=== PATIENT | female | born 1965 | race Caucasian/White ===

== ENCOUNTER 2023-10-03 14:38 | Outpatient (AMB) | payer OTHER, SELFPAY ==
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
== END 2023-10-03 15:06 | disposition home or self-care (01) ==
LOC: HO.HOP 14:38
PROVIDERS: PCP Internal Medicine; Visit Provider Clinical Nurse Specialist Psychiatric/Mental Health
DX: F41.1 Generalized anxiety disorder (principal); F41.0 Panic disorder [episodic paroxysmal anxiety]
CPT/HCPCS: 99214

== ENCOUNTER → 2023-10-03 14:38 | Outpatient (BNVA) | payer OTHER, SELFPAY | PROVIDERS: PCP Internal Medicine; Visit Provider Clinical Nurse Specialist Psychiatric/Mental Health | DX: F41.1 Generalized anxiety disorder (principal); F41.0 Panic disorder [episodic paroxysmal anxiety] | CPT/HCPCS: 99212 ==

== ENCOUNTER 2024-01-02 09:25 | Outpatient (AMB) | payer OTHER, SELFPAY ==
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
== END 2024-01-02 11:04 | disposition home or self-care (01) ==
LOC: HO.HOP 09:25
PROVIDERS: PCP Internal Medicine; Visit Provider Clinical Nurse Specialist Psychiatric/Mental Health
DX: F41.0 Panic disorder [episodic paroxysmal anxiety] (principal); F43.10 Post-traumatic stress disorder, unspecified
CPT/HCPCS: 99215

== ENCOUNTER → 2024-01-02 09:25 | Outpatient (BNVA) | payer OTHER, SELFPAY | PROVIDERS: PCP Internal Medicine; Visit Provider Clinical Nurse Specialist Psychiatric/Mental Health | DX: F41.0 Panic disorder [episodic paroxysmal anxiety] (principal); F43.10 Post-traumatic stress disorder, unspecified | CPT/HCPCS: 99212 ==

== ENCOUNTER 2024-03-26 09:14 | Outpatient (AMB) | payer OTHER, SELFPAY ==
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
== END 2024-03-26 09:42 | disposition home or self-care (01) ==
LOC: HO.HOP 09:14
PROVIDERS: PCP Internal Medicine; Visit Provider Clinical Nurse Specialist Psychiatric/Mental Health
DX: F43.10 Post-traumatic stress disorder, unspecified (principal); F41.0 Panic disorder [episodic paroxysmal anxiety]
CPT/HCPCS: 99214

== ENCOUNTER → 2024-03-26 09:14 | Outpatient (BNVA) | payer OTHER, SELFPAY | PROVIDERS: PCP Internal Medicine; Visit Provider Clinical Nurse Specialist Psychiatric/Mental Health | DX: F43.10 Post-traumatic stress disorder, unspecified (principal); F41.0 Panic disorder [episodic paroxysmal anxiety] | CPT/HCPCS: 99212 ==

== ENCOUNTER 2024-06-18 09:28 | Outpatient (AMB) | payer OTHER, SELFPAY ==
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
--- OUTSIDE RECORDS SUMMARY | 2024-06-18 09:33 | XMS_ITS | Continuity of Care Document ---
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 [address], [place], [id number], . tel:[phone] Family History Family Member Type Diagnosis Age At Onset No Information Payers Payer name Insurance type Covered constitution party ID Authoriza tion(s) No Information Social History Type Description Quantity Date Captured Comments Alcohol Use Details Unknown Caffeine Use Details Unknown Tobacco Use Status No Information Smoking Status No Information Sex Female Chief Complaint And Reason For Visit No Information Reason For Referral Reason For Referral No Information History Of Present Illness Encounter Date Complaint History Of Prese nt Illness No Information Functional Status Date Functional Assessmen t No Information Instructions Date Instruction Additional Infor mation No Information Assessments Type Assessment Date No Information Patient Care Teams Name Effective Dates (start - stop) Status Members No Information
== END 2024-06-18 09:55 | disposition home or self-care (01) ==
LOC: HO.HOP 09:28
PROVIDERS: PCP Internal Medicine; Visit Provider Clinical Nurse Specialist Psychiatric/Mental Health
DX: F43.10 Post-traumatic stress disorder, unspecified (principal); F41.0 Panic disorder [episodic paroxysmal anxiety]
CPT/HCPCS: 99214

== ENCOUNTER → 2024-06-18 09:28 | Outpatient (BNVA) | payer OTHER, SELFPAY | PROVIDERS: PCP Internal Medicine; Visit Provider Clinical Nurse Specialist Psychiatric/Mental Health | DX: F43.10 Post-traumatic stress disorder, unspecified (principal); F41.0 Panic disorder [episodic paroxysmal anxiety] | CPT/HCPCS: 99212 ==

== ENCOUNTER 2024-09-17 09:16 | Outpatient (AMB) | payer OTHER, SELFPAY ==
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
--- OUTSIDE RECORDS SUMMARY | 2024-09-17 10:45 | XMS_ITS | Encounter Summary ---
Author Organization [facility] Address [address] [place] [address] Care Team Providers Care Speaking Unit Assembler Name Role Phone Kari Camacho MD Primary Care Provider [phone] Reason for Visit * Reason Onset Date Comments Med Refill 08/04/2024 Zepbound Encounter Details Date Type Department Care Team ([facility] st Contact Info) Description 08/04/2024 Telephone Bariatric Surgery - [place] [address] [phone] Kamryn Hart MD [address] [address] Med Refill (Zepbound) Social History Tobacco Use Types Packs/Day Years Used Date Smoking Tobacco: Light Smoker Smokeless Tobacco: Never Alcohol Use Standard Drinks/Week Comments Not Currently 0 (1 standard drink = 0.6 oz pur e alcohol) Comments Unknown Sex and Gender Information Value Date Recorded Sex Assigned at Female 05/18/2024 10:54 AM EST Legal Sex Female 11:37 PM EST Gender Identity Female 05/18/2024 10:54 AM EST Sexual Orientation Straight 05/18/2024 10 :54 AM EST documented as of this encounter Functional Status * Are you deaf or do you have serious difficulty hearing? Answer Date of Assessment Author No 05/18/2024 9:01 AM EST Amanda Hanna, ABBE * Are you blind or do you have serious difficulty seeing, even when wearing glasses? Answer Date of Assessment Author No 05/18/2024 9:01 AM Amanda Esqueda RN * Do you have serious difficulty walking or climbing stairs? Answer Date of Assessment Author No 05/18/2024 9:01 AM Amanda Esqueda RN * Do you have serious difficulty dressing or bathing? Answer Date of Assessment Author No 05/18/2024 9:01 AM Amanda Esqueda RN * Because of a physical, mental, or emotional condition, do you have serious difficulty doing errandsalone such as visiting the doctor? Answer Date of Assessment Author No 05/18/2024 9:01 AM Amanda Esqueda RN documented as of this encounter Mental Status * Because of a physical, mental, or emotional condition, do you have serious difficulty concentrating, remembering, or making decisions? (5 years old or older) Answer Entry Date Author No 05/18/2024 9:01 AM Amanda Esqueda RN documented in this encounter Progress Notes * Hoda Hale - 08/04/2024 10:05 AM EST Patient did well on Zepbound 2.5 mgs and would like a refill with titration. If appropriate, please send script for Zepbound 5 mgs to their pharmacy. The patient does have a follow up in 10/15/2024 documented in this encounter Plan of Treatment Upcoming Encounters Date Type Department Care Team (Late st Contact Info) Description 10/15/2024 8:15 AM EDT Office Visit Bariatric Surgery - [place] [address] [facility] [address] [place] [phone] Kamryn Hart MD [address] [facility] [address] [place] [address] documented as of this encounter Visit Diagnoses Not on filedocumented in this encounter Care Teams Speaking Unit Assembler Relationship Specialty Start Date End Date Kari Camacho MD PCP - General Internal Medicine 05/04/15 documented as of this encounter
--- OUTSIDE RECORDS SUMMARY | 2024-09-17 10:45 | XMS_ITS | Clinical Summary ---
Author Organization 175 [facility] Address 175 [place] [address] Phone Care Team Providers Care Chemical Laboratory Chief Name Role Phone Kari Camacho MD Primary Care Provider [phone] Allergies Active Allergy Reactions Criticality Noted Date Comments Codeine Hives 01/30/2017 Hydrocodone-Acetaminophen Hallucinations 2016 Medications albuterol sulfate (Proair Digihaler) 90 mcg/actuation aero powdr breath act w/sensor Inhale by mouth. Active cetirizine (ZyrTEC) 10 mg capsule Take 1 capsule (10 mg total) by mouth. Active fluticasone propionate (Flovent Diskus) 50 mcg/actuation diskus inhaler Inhale 1 puff by mouth. Active lisinopriL (PRINIVIL,ZEST RIL) 10 mg tablet Take 2 tablets (20 mg total) by mouth. Active omeprazole (PRILOSEC) 20 mg tablet,delayed release (DR/EC) Take 1 capsule by mouth 2 (two) times a day. Active sodium chloride (AYR) 0.65 % nasal drops Administer into affected nostril(s). Active nicotine (NICODERM CQ) 14 mg/[address] 1 patch on the skin 1 (one) time each day. 30 each 05/18/20 24 Active traMADoL (ULTRAM) 50 mg tablet Take 1 tablet (50 mg total) by mouth every 6 (six) hours if needed for severe pain for up to 12 doses. Max Daily Amount: 200 mg 12 tablet 05/18/20 24 Active tirzepatide, weight loss, (Zepbound) 7.5 mg/0.5 mL injection Inject 0.5 mL (7.5 mg total) under the skin every 7 (seven) days for 28 days. 2 mL 09/02/19 25 025 Active tirzepatide, weight loss, (Zepbound) 5 mg/0.5 mL injection Inject 0.5 mL (5 mg total) under the skin every 7 (seven) days for 28 days. 2 mL 08/04/19 25 025 Discontinued Active Problems Problem Noted Date Diagnosed Date Asthma 05/18/2024 HTN (hypertension) 05/18/2024 Sleep apnea 01/30/2021 Umbilical hernia without obstruction and without gangrene 01/30/2021 Encounters Date Type Department Care Team Description 09/01/2024 Telephone Bariatric Surgery [address] [phone] Kamryn Hart MD Med Refill (Zepbound) 08/04/2024 Telephone Bariatric Surgery [address] [phone] Kamryn Hart MD Med Refill (Zepbound) 07/15/2024 1:15 PM EST Office Visit Bariatric Surgery [address] [phone] Kamryn Hart MD Class 1 obesity due to excess calories with serious comorbidity and body mass index (BMI) of 33.0 to 33.9 in adult (Primary Dx) from Last 3 Months Medical History Medical History Date Comments Hypertension Hyperlipidemia Asthma Kidney stones Social History Tobacco Use Types Packs/Day Years [...] Orientation Straight 05/18/2024 10 :54 AM EST Obstetrics History Last Filed Vital Signs Vital Sign Reading Time Taken Comments Blood Pressure 133/78 07/15/2024 1:21 PM EST Pulse 96 07/15/2024 1:21 PM EST Temperature 36.8 ??C (98.2 ??F) 07/15/2024 1:21 PM ES T Respiratory Rate 18 05/18/2024 4:15 PM EST Oxygen Saturation 94% 05/18/2024 4:18 PM EST Inhaled Oxygen Concentration - - Weight 92.5 kg (204 lb) 07/15/2024 1:21 PM EST Height 165.1 cm (5' 5 ) 07/15/2024 1:21 PM EST Body Mass Index 33.95 07/15/2024 1:21 PM EST Plan of Treatment Upcoming Encounters Date Type Department Care Team (Late st Contact Info) Description 10/15/2024 8:15 AM EDT Office Visit Bariatric Surgery - [place] 175 [facility] [address] [place] [address] Kamryn Hart MD 175 [facility] [address] [place] [address] Health Maintenance Due Date Last Done Comments Breast Cancer Screening 1967 Pneumococcal Vaccine: 50+ Years (1 of 2 - PCV) 1986 Pneumococcal Vaccine: Pediatrics (0 to 5 Years) and At-Risk Patients (6 to 64 Years) (1 of 2 - PCV) 1986 Cervical Cancer Screening: P ap Smear 1988 Zoster Vaccines (1 of 2) 2017 Cholesterol Screening (Lipid Panel) 06/10/2022 Colorectal Cancer Screening: Colonoscopy 06/10/2022 Depression Screening 06/10/2022 HIV Screening 06/10/2022 Hepatitis C Screening 06/10/2022 Social Influencers of Health Screening 06/10/2022 COVID-19 Vaccine (3 - 2023-2 5 season) 2024 07/06/2021, 10/17/2020 Influenza Vaccine (#1) 2024 Hypertension/CHF/CAD Annual BMP Blood Test 05/18/2025 05/18/2024 DTaP,Tdap,and Td Vaccines (3 - Td or Tdap) 05/15/2029 05/15/2019, 07/09/2002 Hepatitis B Vaccines Completed 09/07/2011, 03/28/2011, 02/05/2011 HIB Vaccines Aged Out No longer eligi ble based on patient's age to complete this topic HPV Vaccines Aged Out No longer eligi ble based on patient's age to complete this topic Hepatitis A Vaccines Aged Out No long er eligible based on patient's age to complete this topic IPV Vaccines Aged Out No longer eligi ble based on patient's age to complete this topic MMR Vaccines Aged Out No longer eligi ble based on patient's age to complete this topic Meningococcal ACWY Vaccine Aged Out N o longer eligible based on patient's age to complete this topic Meningococcal B Vacine Aged Out No lo nger eligible based on patient's age to complete this topic RSV Immunization Patients Under 20 months Aged Out No longer eligible b ased on patient's age to complete this topic Varicella Vaccines Aged Out No longer eligible based on patient's age to complete this topic Procedures Procedure Name Priority Date/Time Associated Diagnosis Comments COMPREHENSIVE METABOLIC PANEL STAT 05/18/2024 5:22 AM EST from Last 3 Months or Most Recently Relevant to Health Maintenance Results * (ABNORMAL) Comprehensive metabolic panel (05/18/2024 5:22 AM EST) Sodium 139 133 - 145 mmol/L LAB CHEMISTRY METHOD 05/18/2024 6:03 AM [facility] Potassium 3.9 3.5 - 5.5 mmol/L LAB CHEMISTRY METHOD 05/18/2024 6:03 AM [facility] Chloride 111(H) 96 - 110 mmol/L LAB CHEMISTRY METHOD 05/18/2024 6:03 AM [facility] CO2 20(L) 21 - 32 mmol/L LAB CHEMISTRY METHOD 05/18/2024 6:03 AM [facility] Anion Gap 8 3 - 11 LAB CHEMISTRY METHOD 05/18/2024 6:03 AM [facility] Glucose 129(H) 70 - 100 mg/dL LAB CHEMISTRY METHOD 05/18/2024 6:03 AM [facility] BUN 12 5 - 25 mg/dL LAB CHEMISTRY METHOD 05/18/2024 6:03 AM [facility] Creatinine 0.97 0.50 - 1.10 mg/dL LAB CHEMISTRY METHOD 05/18/2024 6:03 AM [facility] eGFR 68 >=60 mL/min/1. 73m2 LAB CHEMISTRY METHOD 05/18/2024 6:03 AM [facility] Comment:Calculation based on the??Chronic Kidney Disease Epidemiology Collaboration (CKD-EPI) equation refit??without adjustment for race. BUN/Creatinine Ratio 12.4 LAB CHEMISTRY METHOD 05/18/2024 6:03 AM [facility] Calcium 9.2 8.5 - 10.5 mg/dL LAB CHEMISTRY METHOD 05/18/2024 6:03 AM [facility] AST (SGOT) 12 10 - 42 unit/L LAB CHEMISTRY METHOD 05/18/2024 6:03 AM [facility] ALT (SGPT) 23 10 - 60 unit/L LAB CHEMISTRY METHOD 05/18/2024 6:03 AM [facility] Alkaline Phosphatase 83 42 - 121 unit/L LAB CHEMISTRY METHOD 05/18/2024 6:03 AM [facility] Total Protein 6.7 6.0 - 8.0 g/dL LAB CHEMISTRY METHOD 05/18/2024 6:03 AM [facility] Albumin 3.8 3.2 - 5.0 g/dL LAB CHEMISTRY METHOD 05/18/2024 6:03 AM [facility] Total Bilirubin 0.7 0.0 - 1.4 mg/dL LAB CHEMISTRY METHOD 05/18/2024 6:03 AM [facility] Blood Venous blood specimen / Unknown Venipuncture / Unknown 05/18/2024 5:22 AM EST 05/18/2024 5:26 AM EST us Pool Nur MD LAB BLOOD ORDERABLES Final Res ult [facility] [address] [place] [address], [place] [phone] from Last 3 Months or Most Recently Relevant to Health Maintenance Insurance [facility] MEDICAID ADVANTAGE Care Teams Chemical Laboratory Chief Relationship Specialty Start Date End Date Kari Camacho MD PCP - General Internal Medicine 05/04/15
--- OUTSIDE RECORDS SUMMARY | 2024-09-17 10:45 | XMS_ITS | Encounter Summary ---
Author Organization [facility] Address [address] [place] [address] Care Team Providers Care Car Clerk Pullman Name Role Phone Kari Camacho MD Primary Care Provider [phone] Reason for Visit * Reason Onset Date Comments Med Refill 09/01/2024 Zepbound Encounter Details Date Type Department Care Team ([facility] st Contact Info) Description 09/01/2024 Telephone Bariatric Surgery - [place] [address] [phone] Kamryn Hart MD [address] [address] Med Refill (Zepbound) Social History Tobacco Use [...] encounter Progress Notes * Hoda Hale - 09/01/2024 3:43 PM EST Patient did well on Zepbound 5 mgs and would like a refill with titration. If appropriate, please send script for Zepbound 7.5 mgs to their pharmacy. The patient does have a follow up in 10/15/2024 documented in this encounter Plan of Treatment Upcoming Encounters Date Type Department Care Team (Late st Contact Info) Description 10/15/2024 8:15 AM EDT Office Visit Bariatric Surgery - [place] [address] [facility] [address] [place] [phone] Kamryn Hart MD [address] [facility] [address] [place] [address] documented as of this encounter Visit Diagnoses Not on filedocumented in this encounter Care Teams Car Clerk Pullman Relationship Specialty Start Date End Date Kari Camacho MD PCP - General Internal Medicine 05/04/15 documented as of this encounter
--- OUTSIDE RECORDS SUMMARY | 2024-09-17 10:45 | XMS_ITS | Continuity of Care Document ---
Author Organization [facility] Address [address] [place] [address] Phone Care Team Providers Care Chain Maker Machine Name Role Phone Gilmer Lorenzo MD Unavailable Unavailable Advance Directives Directive Yes / No Effective Date File Name No Information Encounters Encounter Description Practice Location Reason(s) For Visit Diagnoses Date Provider Providers Copied on Encounter [facility], [address], [place], [id number], tel:[phone] [facility] No Information Bj Scherer. [address], [place], [id number], . tel:[phone] Family History Family Member Type Diagnosis Age At Onset No Information Payers Payer name Insurance type Covered green party ID Authoriza tion(s) No Information Social [...]
--- OUTSIDE RECORDS SUMMARY | 2024-09-17 10:45 | XMS_ITS | Continuity of Care Document ---
Author Organization [facility] Address [address] [place] [address] Phone Care Team Providers Care Hourly Shift Manager Name Role Phone Jeffrey GREGORY PAC, Guille Unavailable Unavailab le Procedures Procedure Date OFFICE/OUTPATIENT VISIT, NEW Advance Directives Directive Yes / No Effective Date File Name No Information Encounters Encounter Description Practice Location Reason(s) For Visit Diagnoses Date Provider Providers Copied on Encounter OFFICE/OUTPA TIENT VISIT, NEW [facility], [address], [place], [id number], tel:[phone] [facility] No Information Jeffrey PAC Guille. [address], [address], [place], [place], [id number] , [place]. tel:[phone] Referring Provider: Araceli Wright, [facility]in Issa , [place], [place], . tel:[phone] Family History Family Member Type Diagnosis Age At Onset No Information Payers Payer name Insurance type Covered democrat ID Authoriza tion(s) [facility] [id number] Social History Type Description Quantity Date Captured Comments Sex Female Smoking Status No Information Chief Complaint And Reason For Visit No [...]
== END 2024-09-17 09:43 | disposition home or self-care (01) ==
LOC: HO.HOP 09:16
PROVIDERS: PCP Internal Medicine; Visit Provider Clinical Nurse Specialist Psychiatric/Mental Health
DX: F43.10 Post-traumatic stress disorder, unspecified (principal); F41.0 Panic disorder [episodic paroxysmal anxiety]
CPT/HCPCS: 99214

== ENCOUNTER → 2024-09-17 09:16 | Outpatient (BNVA) | payer OTHER, SELFPAY | PROVIDERS: PCP Internal Medicine; Visit Provider Clinical Nurse Specialist Psychiatric/Mental Health | DX: F43.10 Post-traumatic stress disorder, unspecified (principal); F41.0 Panic disorder [episodic paroxysmal anxiety]; Z71.89 Other specified counseling | CPT/HCPCS: 99212 ==

== ENCOUNTER 2025-03-23 08:50 | Outpatient (AMB) | payer OTHER, SELFPAY ==
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
--- OUTSIDE RECORDS SUMMARY | 2025-03-23 10:48 | XMS_ITS | Clinical Summary ---
Author Organization 175 [facility] Address [address] [place] [address] Phone Care Team Providers Care Log Rafter Name Role Phone Kari Camacho MD Primary Care Provider [phone] Allergies Active Allergy Reactions Criticality Noted Date Comments Codeine Hives 01/30/2017 Hydrocodone-Acetaminophen Hallucinations 2016 Medications albuterol sulfate (Proair Digihaler) 90 mcg/actuation aero powdr breath act w/sensor Inhale by mouth. Active cetirizine (ZyrTEC) 10 mg capsule Take 1 capsule (10 mg total) by mouth. Active fluticasone propionate (Flovent Diskus) 50 mcg/actuation diskus inhaler Inhale 1 puff by mouth. Active lisinopriL (PRINIVIL,ZESTR IL) 10 mg tablet Take 2 tablets (20 mg total) by mouth. Active omeprazole (PRILOSEC) 20 mg tablet,delayed release (DR/EC) Take 1 capsule by mouth 2 (two) times a day. Active sodium chloride (AYR) 0.65 % nasal drops Administer into affected nostril(s). Active nicotine (NICODERM CQ) 14 mg/[address] 1 patch on the skin 1 (one) time each day. 30 each 4 Active traMADoL (ULTRAM) 50 mg tablet Take 1 tablet (50 mg total) by mouth every 6 (six) hours if needed for severe pain for up to 12 doses. Max Daily Amount: 200 mg 12 tablet 4 Active phentermine 15 mg capsuleIndicati ons:Class 1 obesity due to excess calories with serious comorbidity and body mass index (BMI) of 33.0 to 33.9 in adult Take 1 capsule (15 mg total) by mouth 1 (one) time each day before breakfast. Max Daily Amount: 15 mg 30 each 5 05/25/20 25 Active phentermine 15 mg capsuleIndicati ons:Class 1 obesity due to excess calories with serious comorbidity and body mass index (BMI) of 33.0 to 33.9 in adult Take 1 capsule (15 mg total) by mouth 1 (one) time each day before breakfast. 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 ([facility] V24, [facility] V28) 12/10/2024 Encounter for weight loss counseling 12/10/2024 Limb alert care status 12/10/2024 Severe obesity ([facility] V24, [facility] V28) 2024 Asthma 05/18/2024 HTN (hypertension) 05/18/2024 Sleep apnea 01/30/2021 Umbilical hernia without obstruction and without gangrene 01/30/2021 Encounters Date Type Department Care Team Description 12/30/2024 Telephone Bariatric Surgery - [address] [address] Kamryn Hart MD from Last 3 Months Medical History Medical [...] Sign Reading Time Taken Comments Blood Pressure 153/82 10/15/2024 8:11 AM EDT Pulse 99 10/15/2024 8:11 AM EDT Temperature 36.6 C (97.8 F) 10/15/2024 8:11 AM EDT Respiratory Rate 18 05/18/2024 4:15 PM EST Oxygen Saturation 94% 05/18/2024 4:18 PM EST Inhaled Oxygen Concentration - - Weight 92.5 kg (204 lb) 10/15/2024 8:11 AM EDT Height 165.1 cm (5' 5 ) 10/15/2024 8:11 AM EDT Body Mass Index 33.95 10/15/2024 8:11 AM EDT Plan of Treatment Upcoming Encounters Date Type Department Care Team (Late st Contact Info) Description 04/27/2025 8:00 AM EDT Office Visit Bariatric Surgery - [address] [address] Kamryn Hart MD [address] [place] [phone] Health Maintenance Due Date Last Done Comments Breast Cancer Screening 1967 Pneumococcal Vaccine: 50+ Years (1 of 2 - PCV) 1986 Cervical Cancer Screening: P ap Smear 1988 Zoster Vaccines (1 of 2) 2017 Cholesterol Screening (Lipid Panel) 06/10/2022 Colorectal Cancer Screening: Colonoscopy 06/10/2022 HIV Screening 06/10/2022 Hepatitis C Screening 06/10/2022 Social Influencers of Health Screening 06/10/2022 Depression Screening 07/08/2024 COVID-19 Vaccine (3 - 2024-2 6 season) 2025 07/06/2021, 10/17/2020 Influenza Vaccine (#1) 2025 Hypertension/CHF/CAD Annual BMP Blood Test 05/18/2025 05/18/2024 [...] age to complete this topic Meningococcal B Vaccine Aged Out No l onger eligible based on patient's age to complete [...] mmol/L LAB CHEMISTRY METHOD 05/18/2024 6:03 AM EST [facility] Potassium 3.9 3.5 - 5.5 mmol/L LAB CHEMISTRY METHOD 05/18/2024 6:[address] [facility] Chloride 111(H) 96 - 110 mmol/L LAB CHEMISTRY METHOD 05/18/2024 6:[address] [facility] CO2 20(L) 21 - 32 mmol/L LAB CHEMISTRY METHOD 05/18/2024 6:03 AM EST [facility] Anion Gap 8 3 - 11 LAB CHEMISTRY METHOD 05/18/2024 6:[address] [facility] Glucose 129(H) 70 - 100 mg/dL LAB CHEMISTRY METHOD 05/18/2024 6:[address] [facility] BUN 12 5 - 25 mg/dL LAB CHEMISTRY METHOD 05/18/2024 6:[address] [facility] Creatinine 0.97 0.50 - 1.10 mg/dL LAB CHEMISTRY METHOD 05/18/2024 6:[address] [facility] eGFR 68 >=60 mL/min/1. 73m2 LAB CHEMISTRY METHOD 05/18/2024 6:[address] [facility] Comment:Calculation based on the Chronic Kidney Disease Epidemiology Collaboration (CKD-EPI) equation refit without adjustment for race. BUN/Creatinine Ratio 12.4 LAB CHEMISTRY METHOD 05/18/2024 6:[address] [facility] Calcium 9.2 8.5 - 10.5 mg/dL LAB CHEMISTRY METHOD 05/18/2024 6:[address] [facility] AST (SGOT) 12 10 - 42 unit/L LAB CHEMISTRY METHOD 05/18/2024 6:[address] [facility] ALT (SGPT) 23 10 - 60 unit/L LAB CHEMISTRY METHOD 05/18/2024 6:[address] [facility] Alkaline Phosphatase 83 42 - 121 unit/L LAB CHEMISTRY METHOD 05/18/2024 6:[address] [facility] Total Protein 6.7 6.0 - 8.0 g/dL LAB CHEMISTRY METHOD 05/18/2024 6:[address] [facility] Albumin 3.8 3.2 - 5.0 g/dL LAB CHEMISTRY METHOD 05/18/2024 6:[address] [facility] Total Bilirubin 0.7 0.0 - 1.4 mg/dL LAB CHEMISTRY METHOD 05/18/2024 6:[address] [facility] Blood Venous blood specimen / Unknown Venipuncture / Unknown 05/18/2024 5:22 AM EST 05/18/2024 5:26 AM EST us Pool Nur MD LAB BLOOD ORDERABLES Final Res ult [facility] ([facility]) [facility] [address] [place] [address], [place] [phone] from Last 3 Months or Most Recently Relevant to Health Maintenance Insurance [facility] MEDICAID ADVANTAGE Care Teams Log Rafter Relationship Specialty Start Date End Date Kari Camacho MD [address] [place] [address] PCP - General Internal Medicine 10/14/24
== END 2025-03-23 09:39 | disposition home or self-care (01) ==
PROVIDERS: PCP Internal Medicine; Visit Provider Clinical Nurse Specialist Psychiatric/Mental Health
DX: F43.10 Post-traumatic stress disorder, unspecified (principal); F41.0 Panic disorder [episodic paroxysmal anxiety]
CPT/HCPCS: 99214

== ENCOUNTER → 2025-03-23 08:50 | Outpatient (BNVA) | payer OTHER, SELFPAY | PROVIDERS: PCP Internal Medicine; Visit Provider Clinical Nurse Specialist Psychiatric/Mental Health | DX: F41.0 Panic disorder [episodic paroxysmal anxiety] (principal); F43.10 Post-traumatic stress disorder, unspecified | CPT/HCPCS: 99212 ==

== ENCOUNTER 2025-06-24 09:06 | Outpatient (AMB) | payer OTHER, SELFPAY ==
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
--- OUTSIDE RECORDS SUMMARY | 2025-06-24 10:14 | XMS_ITS | Clinical Summary ---
Author Organization 175 [facility] Address [address] [place] [address] Phone Care Team Providers Care Thin Film Technician Name Role Phone Kari Camacho MD Primary Care Provider [phone] Allergies Active Allergy Reactions Criticality Noted Date Comments Codeine Hives 01/30/2017 Hydrocodone-Acetaminophen Hallucinations 2016 Medications albuterol sulfate (Proair Digihaler) 90 mcg/actuation aero powdr breath act w/sensor Inhale by mouth. Active cetirizine (ZyrTEC) 10 mg capsule Take 1 capsule (10 mg total) by mouth. Active fluticasone propionate (Flovent Diskus) 50 mcg/actuation diskus inhaler Inhale 1 puff by mouth. Active lisinopriL (PRINIVIL,ZESTRI L) 10 mg tablet Take 2 tablets (20 [...] Amount: 200 mg 12 tablet 4 Active topiramate (Topamax) 50 mg tabletIndication s:Class 2 obesity due to excess calories with body mass index (BMI) of 35.0 to 35.9 in adult, unspecified whether serious comorbidity present Take 1 tablet (50 mg total) by mouth at bedtime. 30 each 2 5 07/26/19 26 Active phentermine 15 mg capsuleIndicatio ns:Class 2 obesity due to excess calories with body mass index (BMI) of 35.0 to 35.9 in adult, unspecified whether serious comorbidity present Take 1 capsule (15 mg total) by mouth 1 (one) time each day before breakfast. 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 12/10/2024 Encounter for weight loss counseling 12/10/2024 Limb alert care status 12/10/2024 Severe obesity 12/10/2024 Asthma 05/18/2024 HTN (hypertension) 05/18/2024 Sleep apnea 01/30/2021 Umbilical hernia without obstruction and without gangrene 01/30/2021 Encounters Date Type Department Care Team Description 04/27/2025 8:00 AM EDT Office Visit Bariatric Surgery - [address] [place] [address] Kamryn Hrat MD Class 2 obesity due to excess calories with body mass index (BMI) of 35.0 to 35.9 in adult, unspecified whether serious comorbidity present (Primary Dx); Class 1 obesity due to excess calories with serious comorbidity and body mass index (BMI) of 33.0 to 33.9 in adult; Prediabetes from Last 3 Months Medical History Medical [...] Orientation Straight 05/18/2024 10 :54 AM EST Last Filed Vital Signs Vital Sign Reading Time Taken Comments Blood Pressure 150/70 04/27/2025 8:16 AM EDT Pulse 103 04/27/2025 8:16 AM EDT Temperature 36.6 C (97.8 F) 04/27/2025 8:16 AM EDT Respiratory Rate 18 05/18/2024 4:15 PM EST Oxygen Saturation 94% 05/18/2024 4:18 PM EST Inhaled Oxygen Concentration - - Weight 96.6 kg (213 lb) 04/27/2025 8:16 AM EDT Height 165.1 cm (5' 5 ) 04/27/2025 8:16 AM EDT Body Mass Index 35.45 04/27/2025 8:16 AM EDT Plan of Treatment Upcoming Encounters Date Type Department Care Team (Late st Contact Info) Description 09/30/2025 8:00 AM EDT Office Visit Bariatric Surgery - [address] [place] [address] Kamryn Hart MD [address] [place] [phone] Health Maintenance Due Date Last Done Comments Breast Cancer Screening 1967 Colorectal Cancer Screening: Colonoscopy 1967 Drug Screen 1967 Non-Opioid Controlled Substance Agreement 1967 Pneumococcal Vaccine: 50+ Years (1 of 2 - PCV) 1986 Cervical Cancer Screening: P ap Smear 1988 RSV Immunization Adult Patients (1 - Risk 50-74 years 1-dose series) 2017 Zoster Vaccines (1 of 2) 2017 Cholesterol Screening (Lipid Panel) 06/10/2022 HIV Screening 06/10/2022 Hepatitis C Screening [...] LAB CHEMISTRY METHOD 05/18/2024 6:03 AM EST [facility] Potassium 3.9 3.5 - 5.5 mmol/L LAB CHEMISTRY METHOD 05/18/2024 6:03 AM EST [facility] Chloride 111(H) 96 - 110 mmol/L LAB CHEMISTRY METHOD 05/18/2024 6:03 AM [facility] CO2 20(L) 21 - 32 mmol/L LAB CHEMISTRY METHOD 05/18/2024 6:03 AM [facility] Anion Gap 8 3 - 11 LAB CHEMISTRY METHOD 05/18/2024 6:03 AM [facility] Glucose 129(H) 70 - 100 mg/dL LAB CHEMISTRY METHOD 05/18/2024 6:03 AM [facility] BUN 12 5 - 25 mg/dL LAB CHEMISTRY METHOD 05/18/2024 6:03 AM [facility] Creatinine 0.97 0.50 - 1.10 mg/dL LAB CHEMISTRY METHOD 05/18/2024 6:03 AM [facility] eGFR 68 >=60 mL/min/1. 73m2 LAB CHEMISTRY METHOD 05/18/2024 6:03 AM [facility] Comment:Calculation based on the Chronic Kidney Disease Epidemiology Collaboration (CKD-EPI) equation refit without adjustment for race. BUN/Creatinine Ratio 12.4 LAB CHEMISTRY METHOD 05/18/2024 6:03 AM [facility] Calcium 9.2 8.5 - 10.5 mg/dL LAB CHEMISTRY METHOD 05/18/2024 6:03 AM [facility] AST (SGOT) 12 10 - 42 unit/L LAB CHEMISTRY METHOD 05/18/2024 6:03 AM [facility] ALT (SGPT) 23 10 - 60 unit/L LAB CHEMISTRY METHOD 05/18/2024 6:03 AM [facility] Alkaline Phosphatase 83 42 - 121 unit/L LAB CHEMISTRY METHOD 05/18/2024 6:03 AM [facility] Total Protein 6.7 6.0 - 8.0 g/dL LAB CHEMISTRY METHOD 05/18/2024 6:03 AM [facility] Albumin 3.8 3.2 - 5.0 g/dL LAB CHEMISTRY METHOD 05/18/2024 6:03 AM EST [facility] Total Bilirubin 0.7 0.0 - 1.4 mg/dL LAB CHEMISTRY METHOD 05/18/2024 6:03 AM EST [facility] Blood Venous blood specimen / Unknown Venipuncture / Unknown 05/18/2024 5:22 AM EST 05/18/2024 5:26 AM EST us Pool Nur MD LAB BLOOD ORDERABLES Final Res ult [facility] ([facility]) [facility] [address] [place] [address], from Last 3 Months or Most Recently Relevant to Health Maintenance Insurance [facility] MEDICAID ADVANTAGE Care Teams Thin Film Technician Relationship Specialty Start Date End Date Kari Camacho MD [address] [place] [address] PCP - General Internal Medicine 10/14/24
== END 2025-06-24 09:28 | disposition home or self-care (01) ==
LOC: HO.HOP 09:06
PROVIDERS: PCP Internal Medicine; Visit Provider Clinical Nurse Specialist Psychiatric/Mental Health
DX: F43.10 Post-traumatic stress disorder, unspecified (principal); F41.0 Panic disorder [episodic paroxysmal anxiety]
CPT/HCPCS: 99214

== ENCOUNTER → 2025-06-24 09:06 | Outpatient (BNVA) | payer OTHER, SELFPAY | PROVIDERS: PCP Internal Medicine; Visit Provider Clinical Nurse Specialist Psychiatric/Mental Health | DX: F41.0 Panic disorder [episodic paroxysmal anxiety] (principal); F43.10 Post-traumatic stress disorder, unspecified; Z79.899 Other long term (current) drug therapy | CPT/HCPCS: 99212 ==